=== PATIENT | male | born 1985 | race Caucasian/White ===

== ENCOUNTER 2025-02-22 06:11 | Day surgery (SDC) | payer OTHER, MEDICARE ==
[~2025-02-22] VITALS: Ht 152.4 cm; Wt 50.0 kg
[~2025-02-22 06:11] MED LIST: CALC500T62 PO; CHOL200035 PO; CLON0.1T2 PO; DESM4VIA; DIPH25ST8; HYDR-3818 PO; LEVO100 PO; PHEN60TA16 PO; TRAZ150T80 PO; VIT1CAPS14; ZOLP-280 PO
[2025-02-22] MEDS ORDERED: AMPICILLIN SODIUM 2 GM/NS 100 ML IV ONE (07:17)
[2025-02-22] MEDS ORDERED: RINGERS SOLUTION,LACTATED 1,000 ML IV ONE (07:58)
[2025-02-22 07:59] LABS: PLATELET COUNT (AUTO) 204 K/uL (150-450); RED BLOOD CELL COUNT(AUTO) 4.27 MIL/uL (4.50-5.90); RED CELL DISTRIBUTION WIDTH 13.2 % (11.5-14.5); WHITE BLOOD COUNT (AUTO) 5.6 K/uL (4.5-11.0)
[2025-02-22 08:07] LABS: CALCIUM, TOTAL 8.5 mg/dL (8.8-10.5); CREATININE 1.10 mg/dL (0.60-1.30); GLOMERULAR FILTR. RATE CALC > 60 mL/min (>60); GLUCOSE,RANDOM 89 mg/dL (70-110); SODIUM SERUM 141 mmol/L (136-145); UREA NITROGEN, BLOOD 18 mg/dL (7-18)
[2025-02-22 08:08] LABS: ASPARTATE AMINOTRANSFERASE 23 U/L (15-37); TOTAL PROTEIN, SERUM 6.9 g/dL (6.4-8.2)
[2025-02-22] MEDS ORDERED: DESM0.1T23 PO (08:47)
[2025-02-22] MEDS ORDERED: DIPH50CA35 PO (08:47)
[2025-02-22] MEDS ORDERED: CHOL25TA4 PO (08:47)
[2025-02-22] MEDS ORDERED: HYDR5TAB14 PO (08:47)
[2025-02-22] MEDS ORDERED: CALC-1275 PO (08:47)
[2025-02-22] MEDS ORDERED: LORA2TAB18 PO (08:47)
[2025-02-22] MEDS ORDERED: LEVE-71 PO (08:47)
[2025-02-22] MEDS ORDERED: PROPOFOL 1% 20 ML VIAL IVP ONE (09:12)
[2025-02-22] MEDS ORDERED: ONDANSETRON HCL 4 MG/2 ML VIAL ONE (09:12)
[2025-02-22] MEDS ORDERED: LIDOCAINE/PF 2% 5 ML SYRINGE IVP ONE (09:12)
[2025-02-22] MEDS ORDERED: ROCURONIUM BROMIDE 10 MG/ML 5 ML VIAL ONE (09:12)
[2025-02-22] MEDS ORDERED: DEXAMETHASONE SOD PHOS 4 MG/ML VIAL ONE (09:12)
[2025-02-22] MEDS ORDERED: SUGAMMADEX SODIUM 200 MG/2 ML VIAL IVP ONE (09:12)
[2025-02-22] MEDS: RINGERS SOLUTION,LACTATED 1,000 ML IV ONE (09:44)
== END 2025-02-22 12:40 | disposition home or self-care (01) ==
LOC: SURGERY 06:11
PROVIDERS: ATTEND Dentist General Practice
DX: K05.30 Chronic periodontitis, unspecified (principal); K02.9 Dental caries, unspecified; E03.9 Hypothyroidism, unspecified; F41.9 Anxiety disorder, unspecified
CPT/HCPCS: 41899; 71045; 80053; 85025; 85610; 85730; 36415; 93005; J0290; J2704; J1100; J2405; J3490 ×3; J7120